=== PATIENT | female | born 1980 | race Caucasian/White ===

== ENCOUNTER → 2019-10-08 | Outpatient (CLI) | payer SELFPAY ==
[2019-10-08 12:44] LABS: BASOPHIL # 0.1 10^3/uL (0.0-0.1); BASOPHIL % 0.9 % (0.0-0.2); EOSINOPHIL # 0.2 10^3/uL (0.0-0.2); EOSINOPHIL % 2.6 % (0.0-5.0); LYMPHOCYTES # 1.98 10^3/uL1 (1.0-4.8); MEAN CORP HGB 18.8 pg (26-34); MONOCYTES # 0.8 10^3/uL (0.3-0.8); MONOCYTES % 8.4 % (5.0-12.0); NEUTROPHIL # 6.3 10^3/uL (1.8-7.7); NEUTROPHILS % 67.1 % (41.0-85.0); PLATELET COUNT 377 10^3/uL (150-400); RED CELL DISTRIBUTION WIDTH 20.5 % (11.5-14.5)
[2019-10-08 14:45] LABS: CALCIUM 8.4 mg/dL (8.4-10.5); CARBON DIOXIDE 24.2 mmol/L (20.0-32)
== END | disposition home or self-care (01) ==
LOC: LAB 12:17
PROVIDERS: ATTEND Nurse Practitioner Adult Health
DX: I10 Essential (primary) hypertension (principal)
CPT/HCPCS: 36415; 80053; 80061; 84436; 84439; 84443; 85025